=== PATIENT | female | born 1990 | race Caucasian/White ===

== ENCOUNTER 2017-12-03 19:49 | Emergency (ER) | payer OTHER ==
[~2017-12-03] VITALS: Ht 160 cm; Wt 59.5 kg
[2017-12-03 20:25] LABS: APPEARANCE SL.HAZY ((CLEAR)); BILIRUBIN NEGATIVE; BLOOD NEGATIVE; COLOR AMBER ((YELLOW)); GLUCOSE (STRIP) NEGATIVE; KETONES NEGATIVE; LEUKOCYTES NEGATIVE; NITRITE NEGATIVE; PROTEIN (STRIP) NEGATIVE; SPECIFIC GRAVITY 1.029 (1.000-1.030); UROBILINOGEN 0.2 MG/DL (0.2-1.0)
[2017-12-03 20:27] LABS: BACTERIA NONE SEEN /HPF; EPITHELIAL CELLS 1+ /HPF; MUCUS 1+ /LPF; RED BLOOD CELLS 0-5 /HPF (0-5); UCUL ADDED? NO; WHITE BLOOD CELLS 0-5 /HPF (0-5)
[2017-12-03 20:57] LABS: HEMATOCRIT 35.2 % (36.0-46.0); HEMOGLOBIN 12.3 G/DL (11.9-15.5); MCH 32.1 PG (29.0-34.0); MCHC 34.9 G/DL (30.0-36.0); MCV 91.9 FL (83-99); PLATELET COUNT 307 K/uL (156-360); RBC DIS.WIDTH-CV 12.4 % (11.8-14.6); RBC DIS.WIDTH-SD 41.3 % (39-53); RED BLOOD COUNT 3.83 M/uL (3.80-5.20); WHITE BLOOD COUNT 10.4 K/uL (4.1-10.2)
[2017-12-03 21:08] LABS: ALBUMIN 4.1 g/dL (3.2-4.8)
[2017-12-03 21:09] LABS: CHLORIDE 105 mEq/L (99-109); POTASSIUM 3.9 mEq/L (3.7-5.4); SODIUM 138 mEq/L (136-147)
[2017-12-03 21:11] LABS: GLUCOSE 87 mg/dL (70-99)
[2017-12-03 21:13] LABS: TOTAL BILIRUBIN 0.1 mg/dL (0.0-1.0)
[2017-12-03 21:14] LABS: ALKALINE PHOSPHATASE 68 IU/L (3-129)
[2017-12-03 21:15] LABS: CREATININE 0.6 mg/dL (0.6-1.3); GFR ESTIMATE (CALCULATED) > 59 mL/min/
[2017-12-03 21:16] LABS: AST (GOT) 14 IU/L (2-34); UREA NITROGEN (BUN) 7 mg/dL (9-23)
[2017-12-03 21:17] LABS: ALT (GPT) 16 IU/L (3-49)
[2017-12-03 22:08] LABS: QUANTITATIVE HCG 203941.2 MIU/ML
[2017-12-03 23:38] VITALS: BP 127/73
== END 2017-12-03 23:40 | disposition home or self-care (01) ==
LOC: EME 19:49
DX: O20.0 Threatened abortion (principal); Z3A.01 Less than 8 weeks gestation of pregnancy; O99.331 Smoking (tobacco) complicating pregnancy, first trimester; F17.200 Nicotine dependence, unspecified, uncomplicated
CPT/HCPCS: 76801; 80053; 81003; 84702; 85027; 99281; 99284